=== PATIENT | female | born 1995 | race African-American/Black ===

== ENCOUNTER 2016-10-08 11:59 | Outpatient (CLI) | payer OTHER ==
[2016-10-08] MEDS ORDERED: PRENTAB26 PO (12:57)
--- NOTE | 2016-10-24 10:50 | EDITING REQUIRED CODING QUERY ---
DIAGNOSIS NEEDED To promote full compliance with coding requirements relating to patient care, physician participation is requested in all cases of security associate uncertainty. Please assist us with the question(s) below: Coding Question: The patient received care in labor and delivery on 10/08/16 as noted within the record. Please document the diagnosis that is being addressed by the medication/treatment. Provider Response: DIAGNOSIS: labor Thank you for your assistance, Connie Barros - Motorcycle Technician
== END 2016-10-08 12:25 | disposition other institution (70) ==
LOC: C.OPB 11:59 → C.LD 12:00 → C.OPB 12:25
PROVIDERS: ATTEND Obstetrics & Gynecology
DX: O60.02 Preterm labor without delivery, second trimester (principal); Z3A.20 20 weeks gestation of pregnancy

== ENCOUNTER 2016-10-08 12:32 | Emergency (ER) | payer OTHER ==
[~2016-10-08] VITALS: Ht 172.7 cm; Wt 79.0 kg
[2016-10-08 12:37] VITALS: Ht 172.7 cm; Wt 79.0 kg
[2016-10-08] MEDS ORDERED: PRENTAB26 PO (12:57)
--- NOTE | 2016-10-08 13:25 | EMERGENCY ROOM VISIT NOTE ---
History First contact with patient: 13:03 Chief Complaint: ABDOMINAL PAIN Stated Complaint: ABD PAIN/PT CAME FROM LD Nursing Triage Summary: triage note; pt reports she is 20 weeks preg and started to have left abd pain since this am. pt was seen in labor and bonnie and sent to ed for further eval. History of Present Illness The patient is a 21 year old female who presents to the Emergency Room with complaints of left lower quadrant abdominal pain that started this morning. She thinks that it feels like gas, but it has been persistent throughout the morning. The patient is 20 weeks . She denies any vaginal bleeding. She is feeling good movement from the fetus today. This is her first . She does remember that the pain initially started in her left flank. It seems to be moving down to her lower abdomen throughout the day. She has not taken anything for pain. She denies any nausea or vomiting. She had a normal bowel movement this morning. She denies any dysuria, hematuria or urinary frequency. No fever or chills. Review of Systems 10 system review performed and negative unless noted in HPI or below Past Medical/Surgical History Asthma Social History Smoking Status: Never Smoker Alcohol Use: none Drug Use: none Housing Status: lives with roommate Occupation Status: student Current/Historical Medications Scheduled Multivit/Min/Iron/Fol Ac/Pren ( Vitamin), 1 TAB PO DAILY Allergies Coded Allergies: No Known Allergies (Unverified , 10/08/16) Physical Exam Vital Signs Date Time Temp Pulse Resp B/P (MAP) Pulse Ox O2 Delivery O2 Flow Rate FiO2 10/08/16 15:51 37.0 75 16 110/73 97 10/08/16 15:42 75 16 110/73 97 Room Air 10/08/16 12:37 37.0 78 18 111/73 97 Room Air Physical Exam VITALS: Vitals are noted on the nurse's note and reviewed by myself. Vital signs stable. GENERAL: 21-year-old female, in no acute distress, nondiaphoretic, well- developed well-nourished. SKIN: The skin was without rashes, erythema, edema, or bruising. HEAD: Normocephalic atraumatic. MOUTH: Mucous membranes slightly dry NECK: . No JVD. HEART: Regular rate and rhythm without murmurs gallops or rubs. LUNGS: Clear to auscultation bilaterally without wheezes, rales or rhonchi. No accessory muscle use. ABDOMEN: Gravid. Positive bowel sounds x 4.Soft, mild tenderness to palpation in the left lower quadrant. movement noted.. No guarding or rebound tenderness. MUSCULOSKELETAL: No muscle atrophy, erythema, or edema noted. Strength 5/5 throughout. NEURO: Patient was alert and oriented to person place and time. Normal sensation to touch. No focal neurological deficits. Medical Decision & Procedures ER Provider Diagnostic Interpretation: Patient: NGOC MERINO Address1: [address] [facility] Rec: [id number] Address2: Acct ID: [id number] [facility] Zip: [place] [address] Date: 1995 Sex: F Room/Bed: Ref Phy: Markos Arriaga M.D. SC: RUBI Att Phy: Report #: [id number] Maryam Phy: Markos Arriaga M.D. Test: FLTD Admit Phy: Hvac Mechanic: OCTAVIO Interpreting Phy: Ramiro Birmingham M.D. Diagnosis: ABD PAIN/PT CAME FROM LD Ordering Phy: Hodan Alvarez PA-C Service Date: 10/08/16 Admit Date: 10/08/16 MNE: [id number] CONF: DICTATED BY: Ramiro Birmingham M.D.]] CC: Cesar Maya D.O. Urban, Angela P., PA-C Zeger, Steven, M.D. Endcc: [~ rep ct add3]] LIMITED (US) CLINICAL HISTORY: LLQ abd pain 20 weeks . Pain TECHNIQUE: Ultrasound COMPARISON STUDY: None. FINDINGS: Single, viable intrauterine . Posterior placenta. Heart rate 150 bpm. Left ovary appears unremarkable 3.9 cm. Normal vascular flow is present. Right ovary is not well seen due to overlying bowel content. IMPRESSION: 1. Single, viable intrauterine .. 2. heart rate is confirmed at 150 bpm. 3. Normal left ovary The above report was generated using voice recognition software. It may contain grammatical, syntax or spelling errors. Electronically signed by: Ramiro Birmingham M.D. 10/08/2016 3:11 PM Dictated Date/Time: 10/08/2016 3:09 PM The status of this report is Signed. Draft = Not yet reviewed or approved by Radiologist. Signed = Reviewed and approved by Radiologist. <AttendingPhy></AttendingPhy> <FamilyPhy>Markos Arriaga M.D.</FamilyPhy> < PrimaryPhy>Markos Arriaga M.D.</PrimaryPhy> <UnitNumber>[id number]</UnitNumber> <VisitNumber>[id number] Laboratory Results 10/08/16 13:30 Red Blood Count 4.89, Mean Corpuscular Volume 89.2, Mean Corpuscular Hemoglobin 28.6, Mean Corpuscular Hemoglobin Concent 32.1, Mean Platelet Volume 10.3, Neutrophils (%) (Auto) 71.0, Lymphocytes (%) (Auto) 21.6, Monocytes (%) (Auto) 6.6, Eosinophils (%) (Auto) 0.4, Basophils (%) (Auto) 0.1, Neutrophils # (Auto) 9.21, Lymphocytes # (Auto) 2.80, Monocytes # (Auto) 0.85, Eosinophils # (Auto) 0.05, Basophils # (Auto) 0.01 10/08/16 13:30 Test 10/08/16 13:30 White Blood Count 12.96 K/uL (4.8-10.8) Red Blood Count 4.89 M/uL (4.2-5.4) Hemoglobin 14.0 g/dL (12.0-16.0) Hematocrit 43.6 % (37-47) Mean Corpuscular Volume 89.2 fL (80-100) Mean Corpuscular Hemoglobin 28.6 pg (25-34) Mean Corpuscular Hemoglobin Concent 32.1 g/dl (32-36) Platelet Count 256 K/uL (130-400) Mean Platelet Volume 10.3 fL (7.4-10.4) Neutrophils (%) (Auto) 71.0 % Lymphocytes (%) (Auto) 21.6 % Monocytes (%) (Auto) 6.6 % Eosinophils (%) (Auto) 0.4 % Basophils (%) (Auto) 0.1 % Neutrophils # (Auto) 9.21 K/uL (1.4-6.5) Lymphocytes # (Auto) 2.80 K/uL (1.2-3.4) Monocytes # (Auto) 0.85 K/uL (0.11-0.59) Eosinophils # (Auto) 0.05 K/uL (0-0.5) Basophils # (Auto) 0.01 K/uL (0-0.2) RDW Standard Deviation 41.8 fL (36.4-46.3) RDW Coefficient of Variation 12.9 % (11.5-14.5) Immature Granulocyte % (Auto) 0.3 % Immature Granulocyte # (Auto) 0.04 K/uL (0.00-0.02) Urine Color YELLOW Urine Appearance TURBID (CLEAR) Urine pH 7.5 (4.5-7.5) Urine Specific [place] 1.023 (1.000-1.030) Urine Protein NEG (NEG) Urine Glucose (UA) NEG (NEG) Urine Ketones NEG (NEG) Urine Occult Blood NEG (NEG) Urine Nitrite NEG (NEG) Urine Bilirubin NEG (NEG) Urine Urobilinogen NEG (NEG) Urine Leukocyte Esterase SMALL (NEG) Urine WBC (Auto) 5-10 /hpf (0-5) Urine RBC (Auto) 0-4 /hpf (0-4) Urine Hyaline Casts (Auto) 5-10 /lpf (0-5) Urine Epithelial Cells (Auto) >30 /lpf (0-5) Urine Bacteria (Auto) 2+ (NEG) Anion Gap 6.0 mmol/L (3-11) Est Creatinine Clear Calc Drug Dose 153.5 ml/min Estimated GFR () 147.8 Estimated GFR (Non- 127.6 BUN/Creatinine Ratio 11.1 (10-20) Calcium Level 9.1 mg/dl (8.5-10.1) Total Bilirubin 0.3 mg/dl (0.2-1) Aspartate Amino Transf (AST/SGOT) 18 U/L (15-37) Alanine Aminotransferase (ALT/SGPT) 19 U/L (12-78) Alkaline Phosphatase 35 U/L (45-117) Total Protein 7.5 gm/dl (6.4-8.2) Albumin 3.5 gm/dl (3.4-5.0) Globulin 4.0 gm/dl (2.5-4.0) Albumin/Globulin Ratio 0.9 (0.9-2) Lipase 143 U/L (73-393) Chemistry Specimen Hemolysis Medications Administered Medications (Trade) Dose Ordered Sig/Rick Route Start Time Stop Time Status Last Admin Dose Admin Sodium Chloride 1,000 ml @ 999 mls/hr Q1H1M ONCE IV 10/08/16 13:30 10/08/16 14:30 DC 10/08/16 13:40 999 MLS/HR ED Course Patient was seen and examined Vital signs including blood pressure were reviewed medications list was verified with patient Labs were obtained, and a saline lock was established The patient was hydrated with 1 L of normal saline An ultrasound was performed and reviewed I reviewed discharge instructions the patient. They voiced understanding and had no further questions. Medical Decision Differential diagnosis: Ureteral colic, pyelonephritis, UTI, ovarian cyst, gas pain, gastroenteritis, diverticulitis, appendicitis, threatened This patient is a 21-year-old female that presented to the emergency department with complaints of left lower quadrant abdominal pain that started this morning. She is 20 weeks . She denied any menstrual cramping or vaginal bleeding. She is still feeling good movement. On exam, she did have some mild tenderness in the left lower quadrant. An ultrasound was performed of the fetus. It is viable with an appropriate heart rate. The patient has mild leukocytosis. Otherwise, her labs are unremarkable. The pain dissipated on its own. They were able to visualize the left ovary on the ultrasound, which was normal in appearance. The patient was nontoxic in appearance. I had a low suspicion of intra-abdominal abnormality such as diverticulitis, colitis, appendicitis. I did have a slight suspicion of renal colic, however there was no blood in her urine. She was also fairly comfortable in appearance. The etiology of her pain is unclear. I recommended that she still follow-up with her RETAIL ASSOCIATE within one week. She was instructed to return to the emergency department for any fever, dysuria, returning flank pain, vomiting or diarrhea. She was in agreement with this plan. Impression Primary Impression: Abdominal pain Departure Information Dispostion Home / Self-Care Condition GOOD Referrals Markos Arriaga M.D. (PCP) Forms HOME CARE DOCUMENTATION FORM, IMPORTANT VISIT INFORMATION Patient Instructions My [facility] Additional Instructions You were evaluated in the emergency department today for left lower abdominal pain. This thankfully dissipated on its own. An ultrasound was performed. The baby's heart rate is appropriate. It is recommended that you follow up with your RETAIL ASSOCIATE within one week of a recheck. Return to the emergency department if you have any of the following symptoms: -Fever of 100F or greater -vomiting - Persistent diarrhea -Pain with urination -Frequency with urination -Vaginal bleeding -Chest pain -Shortness of breath -Worsening pain
[2016-10-08] MEDS ORDERED: SODIUM CHLORIDE 0.9% 1000ML 1,000 ML IV ONE (13:30)
[2016-10-08 13:55] LABS: BASO % 0.1 %; BASO ABS # 0.01 K/uL (0-0.2); COMPLETE YES; EOS % 0.4 %; HEMATOCRIT 43.6 % (37-47); IG% 0.3 %; LYMPH % 21.6 %; MEAN CELL VOLUME 89.2 fL (80-100); MEAN CORPUSCULAR HEMOGLOBIN 28.6 pg (25-34); MEAN CORPUSCULAR HGB CONC 32.1 g/dl (32-36); MEAN PLATELET VOLUME 10.3 fL (7.4-10.4); MONO % 6.6 %; PLATELET COUNT 256 K/uL (130-400); RED BLOOD COUNT 4.89 M/uL (4.2-5.4); WHITE BLOOD COUNT 12.96 K/uL (4.8-10.8)
[2016-10-08 14:00] LABS: URINE APPEARANCE TURBID (CLEAR); URINE BILIRUBIN NEG (NEG); URINE COLOR YELLOW; URINE EPITHELIAL CELL AUTO >30 /lpf (0-5); URINE NITRITE NEG (NEG); URINE PH 7.5 (4.5-7.5); URINE SPECIFIC GRAVITY 1.023 (1.000-1.030); UROBILINOGEN NEG (NEG)
[2016-10-08 14:04] LABS: MANUAL MICROSCOPIC REQUIRED? NO; REVIEW REQ? NO
[2016-10-08 14:14] LABS: ALB/GLOB RATIO 0.9 (0.9-2); BUN/CREATININE RATIO 11.1 (10-20); CALCIUM 9.1 mg/dl (8.5-10.1); CREATININE 0.64 mg/dl (0.60-1.20)
--- NOTE | 2016-10-08 15:12 | DIAGNOSTIC IMAGING REPORT ---
LIMITED (US) CLINICAL HISTORY: LLQ abd pain 20 weeks . Pain TECHNIQUE: Ultrasound COMPARISON STUDY: None. FINDINGS: Single, viable intrauterine . Posterior placenta. Heart rate 150 bpm. Left ovary appears unremarkable 3.9 cm. Normal vascular flow is present. Right ovary is not well seen due to overlying bowel content. IMPRESSION: 1. Single, viable intrauterine .. 2. heart rate is confirmed at 150 bpm. 3. Normal left ovary The above report was generated using voice recognition software. It may contain grammatical, syntax or spelling errors. Electronically signed by: Ramiro Birmingham M.D. 10/08/2016 3:11 PM Dictated Date/Time: 10/08/2016 3:09 PM
[2016-10-08 15:51] VITALS: BP 110/73; PULSE 75; TEMP 37; O2SAT 97
== END 2016-10-08 15:51 | disposition home or self-care (01) ==
LOC: C.EDB 12:33 → C.EDC 15:51
DX: O26.92 Pregnancy related conditions, unspecified, second trimester (principal); R10.32 Left lower quadrant pain; J45.909 Unspecified asthma, uncomplicated